=== PATIENT | female | born 1965 | race Caucasian/White ===

== ENCOUNTER 2021-09-24 15:15 | Emergency (ER) | payer MEDICAID ==
[~2021-09-24] VITALS: Ht 162.6 cm; Wt 91.2 kg
--- NOTE | 2021-09-24 15:19 | NUR ---
PT BIBA BLS TAKEN TO ER BED 11.
[2021-09-24] MEDS ORDERED: LORazepam 1 MG TAB PO ONE (15:40)
[2021-09-24 15:41] VITALS: BP 145/95
--- NOTE | 2021-09-24 15:56 | NUR ---
55 Y/O FEMALE BIBA FROM HOME FOR ALOC PER PT FAMILY [id number]. PER EMT PT SON COMMITED SUICIDE AND PT BECAME ALOC, NOT ANSWERING QUESTIONS APPROPRIATELY. PT IS A&OX1 TO NAME ONLY. [facility] 14. STATED PAIN IN THE CHEST PRESSURE 6/10. PT NOTED TO BE CONSTANTLY CRYING OUT "PORQUE" AND CRYING. DENIES PMH NKA
[2021-09-24] MEDS ORDERED: ATA25 PO (16:10)
--- NOTE | 2021-09-24 16:11 | NUR ---
PATIENT KAREN. KNOWS HER NAME AND BIRTHDAY. DOES NOT RECOGNIZE PEOPLE AROUND HER. STATING THAT SHE WANTS TO SEE SON. PT FRIEND STATES THAT SHE IS STILL IN PSYCHOSIS. DENIES WANTING TO HARM SELF OR OTHERS Addendum: 09/24/21 at 1613 by ZANE DAVIDE WILD
--- NOTE | 2021-09-24 17:19 | NUR ---
DR TORREZ MADE AWARE OF PATIENT A/O STATUS AND THAT THE FAMILY IS REQUESTING FOR PT TO BE TELEPSYCHED.
--- NOTE | 2021-09-24 17:24 | NUR ---
FAMILY STATES THAT SHE FEELS SAFE IF THE PT GOES HOME, NO FIREARMS IN THE HOME, PT WILL NOT BE ALONE, ENSURED THAT PATIENT IS WELCOME TO COME BACK TO THE ER IF PT CONDITION PERSISTS. DR TORREZ MADE AWARE
--- NOTE | 2021-09-24 17:25 | NUR ---
Patient discharged with v/s stable. Written and verbal after care instructions given and explained. Patient alert, oriented and verbalized understanding of instructions. Ambulatory with steady gait. All questions addressed prior to discharge. ID band removed. Patient advised to follow up with PMD. Rx of ATARAX HCL given. Patient educated on indication of medication including possible reaction and side effects. Opportunity to ask questions provided and answered.
== END 2021-09-24 17:25 | disposition home or self-care (01) ==
LOC: MED 15:15
DX: F41.9 Anxiety disorder, unspecified (principal); R41.82 Altered mental status, unspecified; R07.89 Other chest pain; F17.200 Nicotine dependence, unspecified, uncomplicated; Z79.899 Other long term (current) drug therapy
CPT/HCPCS: 93005; 99283